=== PATIENT | female | born 1940 | race Two or more races ===

== ENCOUNTER 2023-10-01 09:31 | Outpatient (CLI) | payer OTHER | END 2023-10-01 11:19 | disposition home or self-care (01) | LOC: MRI 09:31 | PROVIDERS: ATTEND Family Medicine | DX: G47.51 Confusional arousals (principal); R41.0 Disorientation, unspecified | CPT/HCPCS: 70552; Q9965 ==

== ENCOUNTER 2023-10-01 11:32 | Outpatient (CLI) | payer OTHER | END 2023-10-01 11:33 | disposition home or self-care (01) | LOC: NUCLEAR 11:32 | PROVIDERS: ATTEND Family Medicine | DX: R41.0 Disorientation, unspecified (principal); G47.51 Confusional arousals ==

== ENCOUNTER 2024-02-01 14:30 | Outpatient (CLI) | payer OTHER | END 2024-02-01 14:33 | disposition home or self-care (01) | LOC: RAD 14:30 | PROVIDERS: ATTEND Family Medicine | DX: R05.2 Subacute cough (principal) ==

== ENCOUNTER 2025-08-10 09:20 | Outpatient (CLI) | payer OTHER | END 2025-08-10 09:25 | disposition home or self-care (01) | LOC: SONOGRAMA 09:20 | PROVIDERS: ATTEND Family Medicine | DX: R74.8 Abnormal levels of other serum enzymes (principal) ==

== ENCOUNTER → 2025-08-10 10:16 | Outpatient (CLI) | payer OTHER | END | disposition home or self-care (01) | LOC: NUCLEAR 10:16 | PROVIDERS: ATTEND Family Medicine | DX: M81.0 Age-related osteoporosis without current pathological fracture (principal) ==